=== PATIENT | male | born 1995 | race Caucasian/White ===

== ENCOUNTER 2022-01-18 23:35 | Emergency (ER) | payer OTHER, MEDICAID ==
[~2022-01-18] VITALS: Ht 167.6 cm; Wt 84.0 kg
[2022-01-18 23:41] VITALS: BP 137/84
== END 2022-01-19 00:02 ==
LOC: ER 23:53
DX: T14.91XA Suicide attempt, initial encounter (principal); X83.8XXA Intentional self-harm by other specified means, initial encounter; Y93.89 Activity, other specified; Y92.143 Cell of prison as the place of occurrence of the external cause
CPT/HCPCS: 99283